=== PATIENT | female | born 1985 | race Caucasian/White ===

== ENCOUNTER 2020-07-07 11:00 | Emergency (ER) | payer OTHER ==
[~2020-07-07] VITALS: Ht 175.3 cm; Wt 98.4 kg
[2020-07-07] MEDS ORDERED: methylPREDNISolone SOD SUCC 125 MG/2 ML ONE (11:29)
[2020-07-07] MEDS ORDERED: ALBUTEROL SULFATE 2.5 MG/3 ML ONE (11:29)
[2020-07-07] MEDS ORDERED: methylPREDNISolone SOD SUCC 125 MG/2 ML IV ONE (11:30)
[2020-07-07] MEDS ORDERED: ALBUTEROL/IPRATROPIUM 2.5MG/0.5MG, 3 ML NPPB SCH (11:30)
[2020-07-07] MEDS ORDERED: SODIUM CHLORIDE FLUSH 10ML SYR IVF ONE (11:30)
[2020-07-07 11:46] LABS: BASOPHILS # (AUTO) 0.02 x10^3/uL (0-0.1); BASOPHILS % (AUTO) 0 % (0-1); EOSINOPHILS % (AUTO) 0 % (1-7); LYMPHOCYTES # (AUTO) 0.53 x10^3/uL (1-3.4); LYMPHOCYTES % (AUTO) 4 % (22-44); MD NO; MEAN CORPUSCULAR HEMOGLOBIN 28.4 pg (27.0-34.8); MEAN CORPUSCULAR HGB CONC 33.6 g/dL (32.4-35.8); MEAN CORPUSCULAR VOLUME 84.5 fL (80-100); MEAN PLATELET VOLUME 9.3 fL (7.4-10.4); MONOCYTES # (AUTO) 0.89 x10^3/uL (0.2-0.8); MONOCYTES % (AUTO) 6 % (2-9); NEUTROPHILS # (AUTO) 13.68 x10^3/uL (1.8-6.8); NEUTROPHILS % (AUTO) 91 % (42-75); PLATELET COUNT 273 x10^3/uL (130-400); RED BLOOD COUNT 4.63 x10^6/uL (3.82-5.3); RED CELL DISTRIBUTION WIDTH 13.8 % (9.6-15.2)
[2020-07-07 12:00] LABS: ANION GAP 8 mmol/L (5-15); CALCIUM 9.3 mg/dL (8.5-10.1); CHLORIDE 107 mmol/L (98-107)
[2020-07-07 12:04] LABS: TROPONIN I < 0.015 ng/mL (0.000-0.045)
[2020-07-07] MEDS ORDERED: KETOROLAC 30 MG/1 ML IVPush ONE (13:00)
[2020-07-07] MEDS ORDERED: LORazepam 2 MG/ML, 1ML IV ONE (13:00)
[2020-07-07] MEDS ORDERED: OMNIPAQUE 350 MG/ML, 75ML BOTTLE ONE (13:10)
--- NOTE | 2020-07-07 13:12 | NUR ---
Pt in [place]
--- NOTE | 2020-07-07 13:16 | NUR ---
Pt here for SOB beginning at 0400 this morning. Pt appears very anxious, too tremulous to hold breathing treatment. Tearful with PIV.
[2020-07-07 14:07] VITALS: BP 123/58
--- NOTE | 2020-07-07 14:08 | NUR ---
Pt DC'd, states feeling much better. Pt no longer anxious. VSWNL, home with friend.
== END 2020-07-07 14:10 | disposition home or self-care (01) ==
LOC: ED 12:04
DX: R09.1 Pleurisy (principal); R06.02 Shortness of breath
CPT/HCPCS: 36415; 71045; 71275; 80048; 82040; 83605; 84145; 84484; 85025; 85379; 87040; 93005; 94640; 96374; 99285; J2930; Q9967